=== PATIENT | male | born 1980 | race Caucasian/White ===

== ENCOUNTER 2024-08-30 08:16 | Emergency (ER) | payer SELFPAY ==
[2024-08-30] MEDS: Labetalol 20 MG/4 ML Syringe IVPUSH ONE (08:44)
[2024-08-30 08:47] LABS: HEMATOCRIT 44.5 % (38.4-49.7); HEMOGLOBIN 16.1 g/dL (12.9-16.9); MEAN CORPUSCULAR HEMOGLOBIN 30.8 pg (31.6-35.5); MEAN CORPUSCULAR HGB CONC 36.2 g/dL (31.6-35.5); MEAN CORPUSCULAR VOLUME 85.2 fL (81.4-99.0); RED BLOOD CELL COUNT 5.22 M/uL (4.14-5.76); WHITE BLOOD CELL COUNT,WBC 6.2 K/uL (3.2-11.0)
[2024-08-30 08:56] VITALS: BP 161/100; PULSE 81
[2024-08-30 09:10] LABS: ALANINE AMINOTRANSFERASE,ALT 72 U/L (12-78); ALKALINE PHOSPHATASE 141 U/L (46-116); ASPARTATE AMNIOTRANSFERASE,AST 27 U/L (15-37); BILIRUBIN TOTAL 0.7 mg/dL (0.2-1.0); BLOOD UREA NITROGEN,BUN 14 mg/dL (7-18); CALCIUM 9.2 mg/dL (8.5-10.1); CARBON DIOXIDE,CO2 31 mmol/L (21-32); CHLORIDE,CL 100 mmol/L (100-108); CREATININE 1.3 mg/dL (0.8-1.3); ESTIMATED GFR 70 mL/min (>60); GLUCOSE RANDOM 181 mg/dL (74-106); POTASSIUM,K 3.8 mmol/L (3.6-5.2); SODIUM,NA 138 mmol/L (140-148)
[2024-08-30 09:21] LABS: ANION GAP 10.8 mmol/L (5.0-14.0)
[2024-08-30] MEDS: Iopamidol 755 Mg/ML 100 ML Bottle IV SCH (09:32)
[2024-08-30] MEDS: Sodium Chloride 0.9% 100 ML IV SCH (09:32)
== END 2024-08-30 12:22 | disposition home or self-care (01) ==
LOC: JP.ED 08:16
DX: R20.2 Paresthesia of skin (principal); E11.9 Type 2 diabetes mellitus without complications; I10 Essential (primary) hypertension; Z79.899 Other long term (current) drug therapy; Z79.84 Long term (current) use of oral hypoglycemic drugs; Z79.4 Long term (current) use of insulin
CPT/HCPCS: 36415; 70450; 70496; 70498; 80053; 85027; 93005; 96374; 99284; J1920; J3490; Q9967